=== PATIENT | male | born 1960 | race Caucasian/White ===

== ENCOUNTER 2016-09-28 17:19 | Inpatient (IN) | payer MEDICAID ==
[~2016-09-28] VITALS: Ht 182.9 cm; Wt 120.4 kg
[2016-09-28] MEDS ORDERED: ASPI500T10 PO (17:52)
[2016-09-28] MEDS ORDERED: SODIUM CHLORIDE FLUSH 10ML SYR IVF ONE (18:30)
[2016-09-28 19:17] LABS: HEMOGLOBIN 8.7 g/dL (13.7-18.0)
[2016-09-28 19:39] LABS: ASPARTATE AMINO TRANSFERASE 41 U/L (15-37); BLOOD UREA NITROGEN 30 mg/dL (7-18)
[2016-09-28 19:41] LABS: IS PT STATUS REG ER OR PRE ER? YES
[2016-09-28] MEDS ORDERED: SODIUM CHLORIDE FLUSH 10ML SYR IVF PRN (20:30)
[2016-09-28] MEDS ORDERED: FUROSEMIDE 40 MG/4 ML IV ONE (21:30)
[2016-09-28] MEDS ORDERED: POLYETHYLENE GLYCOL 17 GM PACKET PO PRN (21:30)
[2016-09-28] MEDS ORDERED: BISACODYL 10 MG SUPP PR PRN (21:30)
[2016-09-28] MEDS ORDERED: ONDANSETRON 2MG/ML, 2ML IVP PRN (21:30)
[2016-09-28] MEDS: POTASSIUM CHLORIDE 20 MEQ TAB.ER.PRT PO SCH (22:41)
[2016-09-28] MEDS: HEPARIN 5,000 UNITS/ML, 1ML SQ SCH (22:41)
[2016-09-28] MEDS: SODIUM CHLORIDE FLUSH 10ML SYR IVF SCH (22:41)
[2016-09-28 22:51] VITALS: BP 177/95
[2016-09-29 01:21] LABS: IS PT STATUS REG ER OR PRE ER? NO
[2016-09-29 02:24] VITALS: BP 171/94
[2016-09-29] MEDS: HEPARIN 5,000 UNITS/ML, 1ML SQ SCH ×3 (05:46→21:01)
[2016-09-29] MEDS ORDERED: CARVEDILOL 3.125 MG TABLET PO SCH (06:00)
[2016-09-29 07:08] LABS: HEMOGLOBIN 7.6 g/dL (13.7-18.0)
[2016-09-29 07:11] LABS: ASPARTATE AMINO TRANSFERASE 27 U/L (15-37); BLOOD UREA NITROGEN 27 mg/dL (7-18)
[2016-09-29 07:23] LABS: IS PT STATUS REG ER OR PRE ER? NO
[2016-09-29 07:57] VITALS: BP 152/80
[2016-09-29] MEDS: FUROSEMIDE 40 MG/4 ML IV SCH ×2 (08:18→16:49)
[2016-09-29] MEDS: POTASSIUM CHLORIDE 20 MEQ TAB.ER.PRT PO SCH ×2 (08:19→16:49)
[2016-09-29] MEDS: SODIUM CHLORIDE FLUSH 10ML SYR IVF SCH ×2 (08:20→21:01)
[2016-09-29] MEDS: SENNA/DOCUSATE TABLET PO SCH (08:20)
[2016-09-29 13:47] VITALS: BP 147/78
[2016-09-29] MEDS: METOPROLOL TARTRATE 25 MG TABLET PO SCH (16:49)
[2016-09-29 17:05] LABS: OCCBLD OBC PASS
[2016-09-29 19:09] VITALS: BP 142/81
[2016-09-30] VITALS (9 sets, daily range): BP systolic 138–193; BP diastolic 75–120
[2016-09-30] MEDS ORDERED: FLU VACC QS2016-17 (36MOS+)UP/PF 0.5 ML IM-VACC ONE (05:00)
[2016-09-30] MEDS: METOPROLOL TARTRATE 25 MG TABLET PO SCH ×2 (05:41→17:55)
[2016-09-30] MEDS: HEPARIN 5,000 UNITS/ML, 1ML SQ SCH ×3 (05:41→20:23)
[2016-09-30 06:49] LABS: HEMOGLOBIN 8.3 g/dL (13.7-18.0)
[2016-09-30 06:59] LABS: BLOOD UREA NITROGEN 29 mg/dL (7-18)
[2016-09-30] MEDS: FUROSEMIDE 40 MG/4 ML IV SCH (07:30)
[2016-09-30] MEDS: SENNA/DOCUSATE TABLET PO SCH (09:45)
[2016-09-30] MEDS: POTASSIUM CHLORIDE 20 MEQ TAB.ER.PRT PO SCH ×2 (09:45→17:55)
[2016-09-30] MEDS: ALBUMIN HUMAN 25% 100 ML IV SCH ×2 (09:45→17:56)
[2016-09-30] MEDS: SODIUM CHLORIDE FLUSH 10ML SYR IVF SCH ×2 (09:45→20:23)
[2016-09-30] MEDS: FUROSEMIDE 20 MG/2 ML IV SCH ×2 (09:46→17:57)
[2016-09-30] MEDS: IRON SUCROSE COMPLEX 100MG/5ML IV SCH (11:51)
[2016-09-30] MEDS: ENALAPRILAT 1.25 MG/ML, 2ML IV PRN (19:04)
[2016-09-30] MEDS ORDERED: FUROSEMIDE 20 MG/2 ML IV ONE (20:00)
[2016-10-01] VITALS (13 sets, daily range): BP systolic 159–202; BP diastolic 72–108
[2016-10-01] MEDS ORDERED: LORazepam 1MG TABLET PO PRN (00:30)
[2016-10-01] MEDS ORDERED: hydrALAzine 20 MG/ML, 1ML IV PRN (00:30)
[2016-10-01 00:47] LABS: ABG COLLECTION SITE LEFT RADIAL; COLLATERAL CIRCULATION TESTING NORMAL
[2016-10-01] MEDS: ENALAPRILAT 1.25 MG/ML, 2ML IV PRN ×2 (00:56→10:26)
[2016-10-01 00:57] LABS: IS PT STATUS REG ER OR PRE ER? NO
[2016-10-01] MEDS: ALBUMIN HUMAN 25% 100 ML IV SCH ×4 (03:57→20:10)
[2016-10-01] MEDS: HEPARIN 5,000 UNITS/ML, 1ML SQ SCH ×3 (05:48→22:42)
[2016-10-01] MEDS: METOPROLOL TARTRATE 25 MG TABLET PO SCH ×2 (05:49→17:13)
[2016-10-01 07:16] LABS: BLOOD UREA NITROGEN 30 mg/dL (7-18)
[2016-10-01 07:20] LABS: IS PT STATUS REG ER OR PRE ER? NO
[2016-10-01] MEDS: FUROSEMIDE 20 MG/2 ML IV SCH ×3 (07:30→17:13)
[2016-10-01] MEDS: IRON SUCROSE COMPLEX 100MG/5ML IV SCH (10:01)
[2016-10-01] MEDS: POTASSIUM CHLORIDE 20 MEQ TAB.ER.PRT PO SCH ×2 (10:01→17:13)
[2016-10-01] MEDS: SENNA/DOCUSATE TABLET PO SCH (10:02)
[2016-10-01] MEDS: SODIUM CHLORIDE FLUSH 10ML SYR IVF SCH ×2 (10:02→20:10)
[2016-10-01] MEDS ORDERED: LORazepam 0.5MG TABLET PO PRN (11:30)
[2016-10-01] MEDS: AMLODIPINE 5 MG TABLET PO SCH (13:07)
[2016-10-01] MEDS ORDERED: LORazepam 0.5MG TABLET PO ONE (19:30)
[2016-10-01 19:54] LABS: ABG COLLECTION SITE RIGHT BRACHIAL
[2016-10-02 01:20] VITALS: BP 180/95
[2016-10-02 02:00] VITALS: BP 162/75
[2016-10-02] MEDS: ALBUMIN HUMAN 25% 100 ML IV SCH (02:30)
[2016-10-02] MEDS: ENALAPRILAT 1.25 MG/ML, 2ML IV PRN (02:30)
[2016-10-02] MEDS: METOPROLOL TARTRATE 25 MG TABLET PO SCH ×2 (05:12→16:14)
[2016-10-02 05:33] LABS: HEMOGLOBIN 8.8 g/dL (13.7-18.0)
[2016-10-02 05:43] LABS: BLOOD UREA NITROGEN 32 mg/dL (7-18)
[2016-10-02 05:47] LABS: ASPARTATE AMINO TRANSFERASE 14 U/L (15-37)
[2016-10-02 06:39] VITALS: BP 161/89
[2016-10-02] MEDS: FUROSEMIDE 20 MG/2 ML IV SCH ×2 (07:30→16:13)
[2016-10-02] MEDS: AMLODIPINE 5 MG TABLET PO SCH (08:20)
[2016-10-02] MEDS: SENNA/DOCUSATE TABLET PO SCH (08:20)
[2016-10-02] MEDS: HEPARIN 5,000 UNITS/ML, 1ML SQ SCH ×2 (08:20→16:14)
[2016-10-02] MEDS: SODIUM CHLORIDE FLUSH 10ML SYR IVF SCH ×2 (08:20→20:52)
[2016-10-02] MEDS: IRON SUCROSE COMPLEX 100MG/5ML IV SCH (08:20)
[2016-10-02] MEDS ORDERED: FUROSEMIDE 100 MG/10 ML IV ONE (09:30)
[2016-10-02] MEDS: POTASSIUM CHLORIDE 20 MEQ TAB.ER.PRT PO SCH ×2 (10:48→16:13)
[2016-10-02] MEDS: AcetaZOLAMIDE INJ 500 MG IVPush SCH ×2 (10:48→20:54)
[2016-10-02 12:07] LABS: ABG COLLECTION SITE RIGHT RADIAL; COLLATERAL CIRCULATION TESTING NORMAL
[2016-10-02 13:14] VITALS: BP 167/78
[2016-10-02 19:54] VITALS: BP 155/76
[2016-10-03] MEDS: HEPARIN 5,000 UNITS/ML, 1ML SQ SCH ×3 (00:49→18:40)
[2016-10-03 03:27] VITALS: BP 158/90
[2016-10-03 06:55] VITALS: BP 165/77
[2016-10-03 06:56] LABS: HEMOGLOBIN 8.5 g/dL (13.7-18.0)
[2016-10-03 07:07] LABS: BLOOD UREA NITROGEN 36 mg/dL (7-18)
[2016-10-03] MEDS: FUROSEMIDE 20 MG/2 ML IV SCH (08:45)
[2016-10-03] MEDS: SENNA/DOCUSATE TABLET PO SCH (09:00)
[2016-10-03 09:02] LABS: PTH INTACT INTERPRETATION ** Comment **
[2016-10-03] MEDS: IRON SUCROSE COMPLEX 100MG/5ML IV SCH (09:14)
[2016-10-03] MEDS: AcetaZOLAMIDE INJ 500 MG IVPush SCH ×2 (09:23→21:36)
[2016-10-03] MEDS: SODIUM CHLORIDE FLUSH 10ML SYR IVF SCH ×2 (09:25→21:36)
[2016-10-03] MEDS: AMLODIPINE 5 MG TABLET PO SCH (09:36)
[2016-10-03] MEDS: METOPROLOL TARTRATE 25 MG TABLET PO SCH ×2 (09:37→21:35)
[2016-10-03] MEDS: POTASSIUM CHLORIDE 20 MEQ TAB.ER.PRT PO SCH ×2 (09:37→18:39)
[2016-10-03 10:03] LABS: PARATHYROID HORMONE INTACT 63.8 pg/mL (14-72)
[2016-10-03 10:23] LABS: ANTISTREPTOLYSIN-O TITER 200 IU/mL
[2016-10-03 13:15] VITALS: BP 165/81
[2016-10-03] MEDS: ERGOCALCIFEROL 50,000 UNIT CAPSULE PO SCH (15:23)
[2016-10-03] MEDS: ALBUMIN HUMAN 25% 100 ML IV SCH (16:30)
[2016-10-03] MEDS ORDERED: FUROSEMIDE 40 MG/4 ML IV SCH (17:00)
[2016-10-03] MEDS: FUROSEMIDE 40 MG/4 ML IV SCH (18:40)
[2016-10-03 21:05] VITALS: BP 162/81
[2016-10-04 03:36] VITALS: BP 160/82
[2016-10-04 05:09] LABS: HEMOGLOBIN 8.3 g/dL (13.7-18.0)
[2016-10-04 05:17] LABS: BLOOD UREA NITROGEN 38 mg/dL (7-18)
[2016-10-04] MEDS: ALBUMIN HUMAN 25% 100 ML IV SCH ×2 (06:00→17:19)
[2016-10-04 06:25] VITALS: BP 149/82
[2016-10-04] MEDS: HEPARIN 5,000 UNITS/ML, 1ML SQ SCH ×3 (06:26→21:59)
[2016-10-04] MEDS: METOPROLOL TARTRATE 25 MG TABLET PO SCH ×2 (06:26→18:00)
[2016-10-04] MEDS: SENNA/DOCUSATE TABLET PO SCH (09:00)
[2016-10-04 09:40] VITALS: BP 123/79
[2016-10-04] MEDS: IRON SUCROSE COMPLEX 100MG/5ML IV SCH (09:44)
[2016-10-04] MEDS: POTASSIUM CHLORIDE 20 MEQ TAB.ER.PRT PO SCH ×2 (09:44→17:15)
[2016-10-04] MEDS: FUROSEMIDE 40 MG/4 ML IV SCH ×2 (09:44→17:17)
[2016-10-04] MEDS: SODIUM CHLORIDE FLUSH 10ML SYR IVF SCH ×2 (09:45→21:59)
[2016-10-04] MEDS: AMLODIPINE 5 MG TABLET PO SCH (09:45)
[2016-10-04] MEDS: AcetaZOLAMIDE INJ 500 MG IVPush SCH (09:45)
[2016-10-04] MEDS: ERGOCALCIFEROL 50,000 UNIT CAPSULE PO SCH (09:46)
[2016-10-04 14:16] VITALS: BP 139/83
[2016-10-04 17:14] VITALS: BP 141/74
[2016-10-04 18:45] VITALS: BP 136/75
[2016-10-05 02:10] VITALS: BP 147/78
[2016-10-05 05:24] LABS: HEMOGLOBIN 7.9 g/dL (13.7-18.0)
[2016-10-05] MEDS: HEPARIN 5,000 UNITS/ML, 1ML SQ SCH ×3 (05:44→21:23)
[2016-10-05] MEDS: METOPROLOL TARTRATE 25 MG TABLET PO SCH ×2 (05:50→17:18)
[2016-10-05] MEDS: ALBUMIN HUMAN 25% 100 ML IV SCH ×2 (05:51→16:28)
[2016-10-05 06:08] LABS: ASPARTATE AMINO TRANSFERASE 12 U/L (15-37); BLOOD UREA NITROGEN 41 mg/dL (7-18)
[2016-10-05 07:24] VITALS: BP 129/76
[2016-10-05] MEDS: POTASSIUM CHLORIDE 20 MEQ TAB.ER.PRT PO SCH (08:00)
[2016-10-05] MEDS: SENNA/DOCUSATE TABLET PO SCH (09:00)
[2016-10-05] MEDS: IRON SUCROSE COMPLEX 100MG/5ML IV SCH (12:17)
[2016-10-05] MEDS: FUROSEMIDE 40 MG/4 ML IV SCH ×2 (12:17→16:59)
[2016-10-05] MEDS: LISINOPRIL 10 MG TABLET PO SCH ×2 (12:18→21:23)
[2016-10-05] MEDS: SODIUM CHLORIDE FLUSH 10ML SYR IVF SCH ×2 (12:18→21:23)
[2016-10-05] MEDS: AMLODIPINE 5 MG TABLET PO SCH (12:18)
[2016-10-05 12:58] VITALS: BP 121/73
[2016-10-05] MEDS: ACETAMINOPHEN 325 MG TABLET PO PRN (13:47)
[2016-10-05 19:20] VITALS: BP 130/73
[2016-10-06 01:41] VITALS: BP 156/80
[2016-10-06] MEDS: HEPARIN 5,000 UNITS/ML, 1ML SQ SCH ×3 (05:21→22:08)
[2016-10-06] MEDS: ALBUMIN HUMAN 25% 100 ML IV SCH ×2 (05:21→18:00)
[2016-10-06] MEDS: METOPROLOL TARTRATE 25 MG TABLET PO SCH ×2 (05:21→18:25)
[2016-10-06 05:22] LABS: HEMOGLOBIN 7.9 g/dL (13.7-18.0)
[2016-10-06 05:49] LABS: ASPARTATE AMINO TRANSFERASE 14 U/L (15-37); BLOOD UREA NITROGEN 45 mg/dL (7-18)
[2016-10-06 07:29] VITALS: BP 120/66
[2016-10-06] MEDS: ACETAMINOPHEN 325 MG TABLET PO PRN ×3 (07:42→18:26)
[2016-10-06] MEDS: SENNA/DOCUSATE TABLET PO SCH (09:00)
[2016-10-06] MEDS: LISINOPRIL 10 MG TABLET PO SCH ×2 (09:09→22:08)
[2016-10-06] MEDS: AMLODIPINE 5 MG TABLET PO SCH (09:10)
[2016-10-06 10:07] LABS: FREE KAPPA LT CHAINS SERUM 151.66 mg/L (3.30-19.40); FREE LAMBDA LT CHAINS SERUM 67.58 mg/L (5.71-26.30); KAPPA/LAMBDA RATIO SERUM 2.24 (0.26-1.65)
[2016-10-06 10:20] LABS: HEPATITIS C VIRUS ANTIBODY Reactive (Nonreactive)
[2016-10-06] MEDS: FUROSEMIDE 40 MG/4 ML IV SCH ×2 (11:41→17:59)
[2016-10-06] MEDS: SODIUM CHLORIDE FLUSH 10ML SYR IVF SCH ×2 (11:41→22:08)
[2016-10-06] MEDS: IRON SUCROSE COMPLEX 100MG/5ML IV SCH (11:41)
[2016-10-06 12:06] LABS: A/G RATIO 0.7 (0.7-1.7); ALBUMIN 2.1 g/dL (2.9-4.4); ALPHA-1-GLOBULIN 0.3 g/dL (0.0-0.4); BETA GLOBULIN 0.8 g/dL (0.7-1.3); GAMMA GLOBULIN 1.1 g/dL (0.4-1.8); IMMUNOGLOBULIN A 140 mg/dL (90-386); IMMUNOGLOBULIN G 1200 mg/dL (700-1600); IMMUNOGLOBULIN M 168 mg/dL (20-172); PROTEIN TOTAL 5.2 g/dL (6.0-8.5)
[2016-10-06 13:06] LABS: A/G RATIO 0.6 (0.7-1.7); ALBUMIN 2.1 g/dL (2.9-4.4); ALPHA-1-GLOBULIN 0.3 g/dL (0.0-0.4); BETA GLOBULIN 0.9 g/dL (0.7-1.3); GAMMA GLOBULIN 1.2 g/dL (0.4-1.8); PROTEIN TOTAL 5.4 g/dL (6.0-8.5)
[2016-10-06 13:50] VITALS: BP 118/67
[2016-10-06 14:07] LABS: PROTEINASE 3 (PR-3) AB <3.5 U/mL (0.0-3.5)
[2016-10-06 18:53] LABS: ANA SCREEN POSITIVE (Negative)
[2016-10-06 19:06] LABS: COMPLEMENT C3 160 mg/dL (82-167); COMPLEMENT C4 29 mg/dL (14-44); COMPLEMENT TOTAL (CH50) >60 U/mL (42-60)
[2016-10-06 19:40] VITALS: BP 131/72
[2016-10-07 01:47] VITALS: BP 144/76
[2016-10-07 05:14] LABS: BLOOD UREA NITROGEN 46 mg/dL (7-18)
[2016-10-07] MEDS: ALBUMIN HUMAN 25% 100 ML IV SCH ×2 (06:00→17:22)
[2016-10-07] MEDS: HEPARIN 5,000 UNITS/ML, 1ML SQ SCH ×3 (06:11→22:00)
[2016-10-07] MEDS: METOPROLOL TARTRATE 25 MG TABLET PO SCH ×2 (06:11→17:16)
[2016-10-07 07:06] VITALS: BP 142/74
[2016-10-07] MEDS: FUROSEMIDE 40 MG/4 ML IV SCH ×4 (07:30→21:00)
[2016-10-07] MEDS: SENNA/DOCUSATE TABLET PO SCH (09:00)
[2016-10-07] MEDS: SODIUM CHLORIDE FLUSH 10ML SYR IVF SCH ×2 (09:27→21:00)
[2016-10-07] MEDS: IRON SUCROSE COMPLEX 100MG/5ML IV SCH (09:27)
[2016-10-07] MEDS: AMLODIPINE 5 MG TABLET PO SCH (09:28)
[2016-10-07] MEDS: LISINOPRIL 10 MG TABLET PO SCH ×2 (09:28→21:00)
[2016-10-07 12:06] LABS: C-REACTIVE PROTEIN, QUANT 2.1 mg/dL (0.02-0.49)
[2016-10-07 14:37] VITALS: BP 136/68
[2016-10-07 19:20] VITALS: BP 143/73
[2016-10-08 02:10] VITALS: BP 154/76
[2016-10-08 05:05] LABS: HEMOGLOBIN 8.1 g/dL (13.7-18.0)
[2016-10-08 05:21] LABS: BLOOD UREA NITROGEN 48 mg/dL (7-18)
[2016-10-08] MEDS: ALBUMIN HUMAN 25% 100 ML IV SCH ×2 (06:00→17:40)
[2016-10-08] MEDS: METOPROLOL TARTRATE 25 MG TABLET PO SCH ×2 (06:00→17:40)
[2016-10-08] MEDS: SENNA/DOCUSATE TABLET PO SCH (09:00)
[2016-10-08 09:59] VITALS: BP 129/72
[2016-10-08] MEDS: FUROSEMIDE 40 MG/4 ML IV SCH ×3 (10:30→21:00)
[2016-10-08] MEDS: HEPARIN 5,000 UNITS/ML, 1ML SQ SCH ×2 (10:30→22:00)
[2016-10-08] MEDS: AMLODIPINE 5 MG TABLET PO SCH (10:30)
[2016-10-08] MEDS: LISINOPRIL 10 MG TABLET PO SCH ×2 (10:30→22:01)
[2016-10-08] MEDS: SODIUM CHLORIDE FLUSH 10ML SYR IVF SCH ×2 (10:30→22:01)
[2016-10-08] MEDS: IRON SUCROSE COMPLEX 100MG/5ML IV SCH (10:30)
[2016-10-08] MEDS ORDERED: LIDOCAINE 2%, 20ML ONE (12:59)
[2016-10-08] MEDS ORDERED: FENTANYL PF 100 MCG/2ML ONE (13:06)
[2016-10-08] MEDS ORDERED: FLUMAZENIL 0.1 MG/1 ML, 5ML ONE (13:06)
[2016-10-08] MEDS ORDERED: MIDAZOLAM 1 MG/ML, 5ML ONE (13:06)
[2016-10-08] MEDS ORDERED: NALOXONE 1 MG/ML, 2ML ONE (13:06)
[2016-10-08 15:09] VITALS: BP 135/78
[2016-10-08 21:30] VITALS: BP 138/68
[2016-10-09 03:55] VITALS: BP 143/75
[2016-10-09] MEDS: ALBUMIN HUMAN 25% 100 ML IV SCH ×2 (06:00→18:00)
[2016-10-09 06:10] LABS: HEMOGLOBIN 8.4 g/dL (13.7-18.0)
[2016-10-09] MEDS: HEPARIN 5,000 UNITS/ML, 1ML SQ SCH ×3 (06:18→20:18)
[2016-10-09 06:20] LABS: BLOOD UREA NITROGEN 49 mg/dL (7-18)
[2016-10-09] MEDS: METOPROLOL TARTRATE 25 MG TABLET PO SCH ×2 (06:22→19:17)
[2016-10-09] MEDS: ACETAMINOPHEN 325 MG TABLET PO PRN (06:22)
[2016-10-09 07:22] VITALS: BP 138/75
[2016-10-09] MEDS: SODIUM CHLORIDE FLUSH 10ML SYR IVF SCH ×2 (09:00→20:18)
[2016-10-09] MEDS: FUROSEMIDE 40 MG/4 ML IV SCH ×3 (10:07→20:18)
[2016-10-09] MEDS: LISINOPRIL 10 MG TABLET PO SCH ×2 (10:07→20:21)
[2016-10-09] MEDS: AMLODIPINE 5 MG TABLET PO SCH (10:07)
[2016-10-09] MEDS: SENNA/DOCUSATE TABLET PO SCH (10:07)
[2016-10-09] MEDS: IRON SUCROSE COMPLEX 100MG/5ML IV SCH (12:24)
[2016-10-09 13:07] LABS: HCV LOG10 4.661 (.); HEPATITIS C PCR QUANTITATION 45800 IU/mL (.)
[2016-10-09 13:29] VITALS: BP 122/64
[2016-10-09 20:40] VITALS: BP 133/67
[2016-10-10] MEDS: ACETAMINOPHEN 325 MG TABLET PO PRN ×2 (00:38→15:53)
[2016-10-10 02:35] VITALS: BP 134/73
[2016-10-10] MEDS: ALBUMIN HUMAN 25% 100 ML IV SCH ×2 (05:00→16:12)
[2016-10-10 05:41] LABS: HEMOGLOBIN 8.8 g/dL (13.7-18.0)
[2016-10-10] MEDS: METOPROLOL TARTRATE 25 MG TABLET PO SCH ×2 (05:49→18:08)
[2016-10-10] MEDS: HEPARIN 5,000 UNITS/ML, 1ML SQ SCH ×3 (05:49→19:59)
[2016-10-10 06:03] LABS: ASPARTATE AMINO TRANSFERASE 13 U/L (15-37); BLOOD UREA NITROGEN 57 mg/dL (7-18)
[2016-10-10 07:26] VITALS: BP 133/71
[2016-10-10] MEDS: SENNA/DOCUSATE TABLET PO SCH (09:00)
[2016-10-10] MEDS: ERGOCALCIFEROL 50,000 UNIT CAPSULE PO SCH (09:08)
[2016-10-10] MEDS: AMLODIPINE 5 MG TABLET PO SCH (09:09)
[2016-10-10] MEDS: LISINOPRIL 10 MG TABLET PO SCH ×2 (09:09→19:59)
[2016-10-10] MEDS: FUROSEMIDE 40 MG/4 ML IV SCH ×3 (09:09→19:59)
[2016-10-10] MEDS: SODIUM CHLORIDE FLUSH 10ML SYR IVF SCH ×2 (09:10→19:59)
[2016-10-10 13:09] VITALS: BP 133/69
[2016-10-10 21:05] LABS: HEPATITIS C GENOTYPE 2b (.)
[2016-10-10 21:15] VITALS: BP 119/69
[2016-10-11 04:00] VITALS: BP 136/70
[2016-10-11] MEDS: ALBUMIN HUMAN 25% 100 ML IV SCH ×2 (05:00→17:00)
[2016-10-11 05:53] LABS: HEMOGLOBIN 8.6 g/dL (13.7-18.0)
[2016-10-11 06:05] LABS: BLOOD UREA NITROGEN 60 mg/dL (7-18)
[2016-10-11] MEDS: HEPARIN 5,000 UNITS/ML, 1ML SQ SCH ×3 (06:33→21:44)
[2016-10-11] MEDS: METOPROLOL TARTRATE 25 MG TABLET PO SCH ×2 (06:33→17:20)
[2016-10-11 08:19] VITALS: BP 133/71
[2016-10-11] MEDS: SENNA/DOCUSATE TABLET PO SCH (09:00)
[2016-10-11] MEDS: AMLODIPINE 5 MG TABLET PO SCH (09:14)
[2016-10-11] MEDS: LISINOPRIL 10 MG TABLET PO SCH ×2 (09:14→21:44)
[2016-10-11] MEDS: SODIUM CHLORIDE FLUSH 10ML SYR IVF SCH ×2 (09:15→21:44)
[2016-10-11] MEDS: FUROSEMIDE 40 MG/4 ML IV SCH ×3 (09:15→21:43)
[2016-10-11 12:53] VITALS: BP 93/62
[2016-10-11 14:08] VITALS: BP 123/66
[2016-10-11 17:19] VITALS: BP 126/68
[2016-10-11 20:20] VITALS: BP 133/72
[2016-10-11] MEDS: ACETAMINOPHEN 325 MG TABLET PO PRN (23:56)
[2016-10-12 02:58] VITALS: BP 133/73
[2016-10-12] MEDS: ALBUMIN HUMAN 25% 100 ML IV SCH (05:26)
[2016-10-12 06:02] VITALS: BP 133/71
[2016-10-12] MEDS: METOPROLOL TARTRATE 25 MG TABLET PO SCH ×2 (06:05→17:45)
[2016-10-12] MEDS: HEPARIN 5,000 UNITS/ML, 1ML SQ SCH ×3 (06:05→21:34)
[2016-10-12 06:15] LABS: HEMOGLOBIN 8.7 g/dL (13.7-18.0)
[2016-10-12 06:26] LABS: BLOOD UREA NITROGEN 68 mg/dL (7-18)
[2016-10-12 07:17] VITALS: BP 132/74
[2016-10-12] MEDS: AMLODIPINE 5 MG TABLET PO SCH (08:25)
[2016-10-12] MEDS: LISINOPRIL 10 MG TABLET PO SCH ×2 (08:25→21:34)
[2016-10-12] MEDS: FUROSEMIDE 40 MG/4 ML IV SCH (08:26)
[2016-10-12] MEDS: SODIUM CHLORIDE FLUSH 10ML SYR IVF SCH ×2 (08:26→21:34)
[2016-10-12] MEDS: SENNA/DOCUSATE TABLET PO SCH (08:28)
[2016-10-12 12:35] VITALS: BP 134/70
[2016-10-12 17:44] VITALS: BP 128/74
[2016-10-12 19:30] VITALS: BP 126/73
[2016-10-13 03:50] VITALS: BP 139/76
[2016-10-13 05:37] VITALS: BP 137/74
[2016-10-13] MEDS: HEPARIN 5,000 UNITS/ML, 1ML SQ SCH ×3 (05:39→20:59)
[2016-10-13] MEDS: METOPROLOL TARTRATE 25 MG TABLET PO SCH ×2 (05:40→17:29)
[2016-10-13 06:45] VITALS: BP 127/67
[2016-10-13] MEDS: SENNA/DOCUSATE TABLET PO SCH (09:00)
[2016-10-13] MEDS ORDERED: FUROSEMIDE 40 MG/4 ML IV SCH (09:00)
[2016-10-13] MEDS: AMLODIPINE 5 MG TABLET PO SCH (09:19)
[2016-10-13] MEDS: LISINOPRIL 10 MG TABLET PO SCH ×2 (09:19→19:50)
[2016-10-13] MEDS: SODIUM CHLORIDE FLUSH 10ML SYR IVF SCH ×2 (09:20→19:51)
[2016-10-13 12:35] VITALS: BP 119/70
[2016-10-13 17:29] VITALS: BP 127/73
[2016-10-13 19:22] VITALS: BP 131/68
[2016-10-13] MEDS: ACETAMINOPHEN 325 MG TABLET PO PRN (19:51)
[2016-10-14 03:46] VITALS: BP 137/79
[2016-10-14 05:39] VITALS: BP 144/74
[2016-10-14] MEDS: METOPROLOL TARTRATE 25 MG TABLET PO SCH ×2 (05:43→17:18)
[2016-10-14] MEDS: HEPARIN 5,000 UNITS/ML, 1ML SQ SCH ×3 (05:43→21:51)
[2016-10-14 08:00] VITALS: BP 125/65
[2016-10-14] MEDS: LISINOPRIL 10 MG TABLET PO SCH ×2 (08:52→21:52)
[2016-10-14] MEDS: FUROSEMIDE 40 MG TABLET PO SCH (08:52)
[2016-10-14] MEDS: AMLODIPINE 5 MG TABLET PO SCH (08:52)
[2016-10-14] MEDS: SENNA/DOCUSATE TABLET PO SCH (08:53)
[2016-10-14] MEDS: SODIUM CHLORIDE FLUSH 10ML SYR IVF SCH ×2 (08:53→21:51)
[2016-10-14 15:12] VITALS: BP 145/71
[2016-10-14 20:23] VITALS: BP 122/65
[2016-10-15 02:59] VITALS: BP 127/73
[2016-10-15] MEDS: METOPROLOL TARTRATE 25 MG TABLET PO SCH ×2 (04:45→17:45)
[2016-10-15] MEDS: HEPARIN 5,000 UNITS/ML, 1ML SQ SCH ×3 (06:32→22:52)
[2016-10-15 07:22] VITALS: BP 141/70
[2016-10-15] MEDS: LISINOPRIL 10 MG TABLET PO SCH ×2 (08:40→22:52)
[2016-10-15] MEDS: AMLODIPINE 5 MG TABLET PO SCH (08:40)
[2016-10-15] MEDS: FUROSEMIDE 40 MG TABLET PO SCH (08:41)
[2016-10-15] MEDS: SENNA/DOCUSATE TABLET PO SCH (08:41)
[2016-10-15] MEDS: SODIUM CHLORIDE FLUSH 10ML SYR IVF SCH ×2 (08:41→22:53)
[2016-10-15 12:21] LABS: BLOOD UREA NITROGEN 70 mg/dL (7-18)
[2016-10-15 12:25] LABS: ASPARTATE AMINO TRANSFERASE 15 U/L (15-37)
[2016-10-15 14:26] VITALS: BP 134/73
[2016-10-15 20:00] VITALS: BP 136/71
[2016-10-16 02:00] VITALS: BP 152/75
[2016-10-16] MEDS: HEPARIN 5,000 UNITS/ML, 1ML SQ SCH ×3 (05:16→20:51)
[2016-10-16 05:19] VITALS: BP 147/78
[2016-10-16] MEDS: METOPROLOL TARTRATE 25 MG TABLET PO SCH ×2 (05:19→17:42)
[2016-10-16 06:05] LABS: BLOOD UREA NITROGEN 75 mg/dL (7-18)
[2016-10-16 07:23] VITALS: BP 124/74
[2016-10-16] MEDS: SODIUM CHLORIDE FLUSH 10ML SYR IVF SCH ×2 (09:00→20:52)
[2016-10-16] MEDS: SENNA/DOCUSATE TABLET PO SCH (10:27)
[2016-10-16] MEDS: AMLODIPINE 5 MG TABLET PO SCH (10:27)
[2016-10-16] MEDS: LISINOPRIL 10 MG TABLET PO SCH ×2 (10:28→20:51)
[2016-10-16] MEDS: FUROSEMIDE 40 MG TABLET PO SCH (10:28)
[2016-10-16 13:40] VITALS: BP 144/77
[2016-10-16 21:42] VITALS: BP 115/63
[2016-10-17 01:55] VITALS: BP 135/73
[2016-10-17 06:08] LABS: BLOOD UREA NITROGEN 77 mg/dL (7-18)
[2016-10-17] MEDS: METOPROLOL TARTRATE 25 MG TABLET PO SCH ×2 (06:30→17:49)
[2016-10-17] MEDS: HEPARIN 5,000 UNITS/ML, 1ML SQ SCH ×3 (06:31→21:51)
[2016-10-17 07:46] VITALS: BP 134/72
[2016-10-17] MEDS: ERGOCALCIFEROL 50,000 UNIT CAPSULE PO SCH (08:35)
[2016-10-17] MEDS: AMLODIPINE 5 MG TABLET PO SCH (08:36)
[2016-10-17] MEDS: SODIUM CHLORIDE FLUSH 10ML SYR IVF SCH ×2 (08:36→21:51)
[2016-10-17] MEDS: SENNA/DOCUSATE TABLET PO SCH (08:36)
[2016-10-17] MEDS: LISINOPRIL 10 MG TABLET PO SCH ×2 (08:36→21:50)
[2016-10-17] MEDS: FUROSEMIDE 40 MG TABLET PO SCH (11:06)
[2016-10-17 12:50] VITALS: BP 100/61
[2016-10-17 20:02] VITALS: BP 126/69
[2016-10-18 03:12] VITALS: BP 145/73
[2016-10-18] MEDS: METOPROLOL TARTRATE 25 MG TABLET PO SCH ×2 (05:56→17:08)
[2016-10-18] MEDS: HEPARIN 5,000 UNITS/ML, 1ML SQ SCH ×3 (05:56→20:15)
[2016-10-18 06:49] LABS: BLOOD UREA NITROGEN 85 mg/dL (7-18)
[2016-10-18 07:01] VITALS: BP 130/70
[2016-10-18] MEDS: SODIUM CHLORIDE FLUSH 10ML SYR IVF SCH ×2 (11:04→20:15)
[2016-10-18] MEDS: FUROSEMIDE 40 MG TABLET PO SCH (11:04)
[2016-10-18] MEDS: AMLODIPINE 5 MG TABLET PO SCH (11:05)
[2016-10-18] MEDS: LISINOPRIL 10 MG TABLET PO SCH ×2 (11:05→20:14)
[2016-10-18] MEDS: SENNA/DOCUSATE TABLET PO SCH (11:05)
[2016-10-18 13:51] VITALS: BP 125/70
[2016-10-18 18:24] VITALS: BP 122/63
[2016-10-19 02:10] VITALS: BP 116/76
[2016-10-19 05:29] VITALS: BP 139/78
[2016-10-19] MEDS: METOPROLOL TARTRATE 25 MG TABLET PO SCH ×2 (05:30→18:00)
[2016-10-19] MEDS: HEPARIN 5,000 UNITS/ML, 1ML SQ SCH ×3 (05:32→18:00)
[2016-10-19 06:18] LABS: HEMOGLOBIN 9.5 g/dL (13.7-18.0)
[2016-10-19 06:35] LABS: BLOOD UREA NITROGEN 89 mg/dL (7-18)
[2016-10-19 07:10] VITALS: BP 144/78
[2016-10-19] MEDS: SODIUM CHLORIDE FLUSH 10ML SYR IVF SCH ×2 (09:00→21:01)
[2016-10-19] MEDS: SENNA/DOCUSATE TABLET PO SCH (10:05)
[2016-10-19] MEDS: FUROSEMIDE 40 MG TABLET PO SCH (10:05)
[2016-10-19] MEDS: AMLODIPINE 5 MG TABLET PO SCH (10:06)
[2016-10-19] MEDS: LISINOPRIL 10 MG TABLET PO SCH ×2 (10:06→21:01)
[2016-10-19 14:42] VITALS: BP 128/73
[2016-10-19 19:17] VITALS: BP 132/67
[2016-10-20] MEDS: HEPARIN 5,000 UNITS/ML, 1ML SQ SCH ×3 (01:27→17:21)
[2016-10-20 02:41] VITALS: BP 143/75
[2016-10-20 05:31] VITALS: BP 145/79
[2016-10-20] MEDS: METOPROLOL TARTRATE 25 MG TABLET PO SCH ×2 (05:34→17:21)
[2016-10-20 07:35] VITALS: BP 147/75
[2016-10-20] MEDS: SENNA/DOCUSATE TABLET PO SCH (08:35)
[2016-10-20] MEDS: AMLODIPINE 5 MG TABLET PO SCH (08:35)
[2016-10-20] MEDS: FUROSEMIDE 40 MG TABLET PO SCH (08:35)
[2016-10-20] MEDS: SODIUM CHLORIDE FLUSH 10ML SYR IVF SCH ×2 (08:35→20:28)
[2016-10-20] MEDS: LISINOPRIL 10 MG TABLET PO SCH ×2 (08:35→20:28)
[2016-10-20 14:17] VITALS: BP 114/65
[2016-10-20 19:57] VITALS: BP 137/71
[2016-10-21 00:10] VITALS: BP 134/78
[2016-10-21] MEDS: HEPARIN 5,000 UNITS/ML, 1ML SQ SCH ×3 (01:52→17:37)
[2016-10-21] MEDS: METOPROLOL TARTRATE 25 MG TABLET PO SCH ×2 (05:21→17:37)
[2016-10-21 07:11] VITALS: BP 136/76
[2016-10-21] MEDS: FUROSEMIDE 40 MG TABLET PO SCH (09:10)
[2016-10-21] MEDS: LISINOPRIL 10 MG TABLET PO SCH ×2 (09:10→21:49)
[2016-10-21] MEDS: AMLODIPINE 5 MG TABLET PO SCH (09:10)
[2016-10-21] MEDS: SENNA/DOCUSATE TABLET PO SCH (09:10)
[2016-10-21] MEDS: SODIUM CHLORIDE FLUSH 10ML SYR IVF SCH ×2 (09:10→21:49)
[2016-10-21 13:38] VITALS: BP 118/69
[2016-10-21 18:54] VITALS: BP 133/72
[2016-10-22 02:50] VITALS: BP 136/78
[2016-10-22] MEDS: HEPARIN 5,000 UNITS/ML, 1ML SQ SCH ×3 (03:27→22:02)
[2016-10-22] MEDS: METOPROLOL TARTRATE 25 MG TABLET PO SCH ×2 (05:55→17:34)
[2016-10-22 06:36] LABS: BLOOD UREA NITROGEN 92 mg/dL (7-18)
[2016-10-22 07:05] VITALS: BP 144/80
[2016-10-22] MEDS: SENNA/DOCUSATE TABLET PO SCH (07:54)
[2016-10-22] MEDS: LISINOPRIL 10 MG TABLET PO SCH ×2 (07:54→22:02)
[2016-10-22] MEDS: AMLODIPINE 5 MG TABLET PO SCH (07:54)
[2016-10-22] MEDS: FUROSEMIDE 40 MG TABLET PO SCH (07:55)
[2016-10-22] MEDS: SODIUM CHLORIDE FLUSH 10ML SYR IVF SCH ×2 (07:55→22:02)
[2016-10-22 13:37] VITALS: BP 118/69
[2016-10-22 19:08] VITALS: BP 120/65
[2016-10-23 02:34] VITALS: BP 120/65
[2016-10-23] MEDS: HEPARIN 5,000 UNITS/ML, 1ML SQ SCH ×3 (06:39→22:08)
[2016-10-23] MEDS: METOPROLOL TARTRATE 25 MG TABLET PO SCH ×2 (06:40→17:40)
[2016-10-23 09:25] VITALS: BP 128/71
[2016-10-23] MEDS: FUROSEMIDE 40 MG TABLET PO SCH (09:51)
[2016-10-23] MEDS: AMLODIPINE 5 MG TABLET PO SCH (09:51)
[2016-10-23] MEDS: SENNA/DOCUSATE TABLET PO SCH (09:51)
[2016-10-23] MEDS: SODIUM CHLORIDE FLUSH 10ML SYR IVF SCH ×2 (09:52→22:14)
[2016-10-23] MEDS: LISINOPRIL 10 MG TABLET PO SCH ×2 (09:52→22:07)
[2016-10-23 13:21] VITALS: BP 126/70
[2016-10-23 19:52] VITALS: BP 134/75
[2016-10-24 01:45] VITALS: BP 146/73
[2016-10-24] MEDS: METOPROLOL TARTRATE 25 MG TABLET PO SCH ×2 (05:05→18:00)
[2016-10-24] MEDS: HEPARIN 5,000 UNITS/ML, 1ML SQ SCH ×3 (05:07→21:36)
[2016-10-24 05:08] VITALS: BP 148/78
[2016-10-24 08:07] VITALS: BP 145/86
[2016-10-24] MEDS: SODIUM CHLORIDE FLUSH 10ML SYR IVF SCH ×2 (09:00→21:30)
[2016-10-24] MEDS: ERGOCALCIFEROL 50,000 UNIT CAPSULE PO SCH (09:59)
[2016-10-24] MEDS: AMLODIPINE 5 MG TABLET PO SCH (09:59)
[2016-10-24] MEDS: FUROSEMIDE 40 MG TABLET PO SCH (09:59)
[2016-10-24] MEDS: SENNA/DOCUSATE TABLET PO SCH (09:59)
[2016-10-24] MEDS: LISINOPRIL 10 MG TABLET PO SCH ×2 (09:59→21:30)
[2016-10-24 14:00] VITALS: BP 135/72
[2016-10-24 19:20] VITALS: BP 132/72
[2016-10-24] MEDS ORDERED: RISPERIDONE 2 MG TABLET PO SCH (21:00)
[2016-10-25 01:45] VITALS: BP 131/70
[2016-10-25] MEDS: HEPARIN 5,000 UNITS/ML, 1ML SQ SCH ×3 (05:47→21:36)
[2016-10-25] MEDS: METOPROLOL TARTRATE 25 MG TABLET PO SCH ×2 (05:47→17:54)
[2016-10-25 06:00] LABS: ASPARTATE AMINO TRANSFERASE 11 U/L (15-37); BLOOD UREA NITROGEN 93 mg/dL (7-18)
[2016-10-25 06:02] LABS: HEMOGLOBIN 10.6 g/dL (13.7-18.0)
[2016-10-25 07:39] VITALS: BP 148/73
[2016-10-25] MEDS: SENNA/DOCUSATE TABLET PO SCH (07:49)
[2016-10-25] MEDS: AMLODIPINE 5 MG TABLET PO SCH (07:49)
[2016-10-25] MEDS: LISINOPRIL 10 MG TABLET PO SCH ×2 (07:49→21:36)
[2016-10-25] MEDS: FUROSEMIDE 40 MG TABLET PO SCH (07:49)
[2016-10-25] MEDS: SODIUM CHLORIDE FLUSH 10ML SYR IVF SCH ×2 (07:50→21:37)
[2016-10-25 15:18] VITALS: BP 131/70
[2016-10-25 19:10] VITALS: BP 125/67
[2016-10-26 01:13] VITALS: BP 130/79
[2016-10-26] MEDS: METOPROLOL TARTRATE 25 MG TABLET PO SCH ×2 (05:45→17:13)
[2016-10-26] MEDS: HEPARIN 5,000 UNITS/ML, 1ML SQ SCH ×3 (05:45→21:33)
[2016-10-26 06:46] LABS: BLOOD UREA NITROGEN 91 mg/dL (7-18)
[2016-10-26 06:55] VITALS: BP 129/62
[2016-10-26] MEDS: SENNA/DOCUSATE TABLET PO SCH (08:01)
[2016-10-26] MEDS: LISINOPRIL 10 MG TABLET PO SCH ×2 (08:01→21:32)
[2016-10-26] MEDS: AMLODIPINE 5 MG TABLET PO SCH (08:01)
[2016-10-26] MEDS: FUROSEMIDE 40 MG TABLET PO SCH (08:01)
[2016-10-26] MEDS: SODIUM CHLORIDE FLUSH 10ML SYR IVF SCH ×2 (08:02→21:32)
[2016-10-26 12:50] VITALS: BP 113/72
[2016-10-26 18:31] VITALS: BP 123/70
[2016-10-27 03:20] VITALS: BP 151/73
[2016-10-27] MEDS: METOPROLOL TARTRATE 25 MG TABLET PO SCH ×2 (05:30→18:00)
[2016-10-27] MEDS: HEPARIN 5,000 UNITS/ML, 1ML SQ SCH ×3 (05:31→20:34)
[2016-10-27 06:12] LABS: ASPARTATE AMINO TRANSFERASE 11 U/L (15-37); BLOOD UREA NITROGEN 91 mg/dL (7-18)
[2016-10-27 07:18] VITALS: BP 128/75
[2016-10-27] MEDS: SENNA/DOCUSATE TABLET PO SCH (08:59)
[2016-10-27] MEDS: FUROSEMIDE 40 MG TABLET PO SCH (08:59)
[2016-10-27] MEDS: SODIUM CHLORIDE FLUSH 10ML SYR IVF SCH ×2 (09:00→20:34)
[2016-10-27] MEDS: AMLODIPINE 5 MG TABLET PO SCH (09:00)
[2016-10-27] MEDS: LISINOPRIL 10 MG TABLET PO SCH ×2 (09:00→20:34)
[2016-10-27 13:55] VITALS: BP 120/73
[2016-10-27 20:25] VITALS: BP 133/74
[2016-10-27] MEDS ORDERED: AMLODIPINE 5 MG TABLET PO SCH (21:00)
[2016-10-28 01:57] VITALS: BP 135/79
[2016-10-28] MEDS: METOPROLOL TARTRATE 25 MG TABLET PO SCH (06:00)
[2016-10-28 06:08] LABS: HEMOGLOBIN 10.9 g/dL (13.7-18.0)
[2016-10-28 06:10] VITALS: BP 142/77
[2016-10-28] MEDS: HEPARIN 5,000 UNITS/ML, 1ML SQ SCH ×2 (06:12→14:00)
[2016-10-28 06:24] LABS: BLOOD UREA NITROGEN 88 mg/dL (7-18)
[2016-10-28 07:52] VITALS: BP 149/74
[2016-10-28] MEDS: LISINOPRIL 10 MG TABLET PO SCH (08:10)
[2016-10-28] MEDS: SENNA/DOCUSATE TABLET PO SCH (08:11)
[2016-10-28] MEDS: SODIUM CHLORIDE FLUSH 10ML SYR IVF SCH (08:11)
[2016-10-28] MEDS ORDERED: FUROSEMIDE 40 MG/4 ML IV SCH (09:00)
[2016-10-28 11:30] LABS: BLOOD UREA NITROGEN 85 mg/dL (7-18)
[2016-10-28] MEDS ORDERED: LORA-445 PO (13:20)
[2016-10-28] MEDS ORDERED: METO25TA35 PO (13:20)
[2016-10-28] MEDS ORDERED: LISI-167 PO (13:20)
[2016-10-28] MEDS ORDERED: FURO40TA6 PO (13:20)
[2016-10-28] MEDS ORDERED: ERGO500017 PO (13:20)
[2016-10-28] MEDS ORDERED: ACET325T14 PO (13:20)
[2016-10-28] MEDS ORDERED: AMLO5TAB2 PO (13:20)
[2016-10-28 13:37] VITALS: BP 119/72
== END 2016-10-28 16:55 | disposition home or self-care (01) | DRG 291 ==
LOC: ED 20:01 → EDIP 20:02 → SUATTDRO 20:08 → ED 20:22 → 5SO 21:51 → 4WST 10-08 19:29
PROC: 0T9B70Z Drainage of Bladder with Drainage Device, Via Natural or Artificial Opening (ICD-10-PCS; principal; 2016-09-29)
PROC: 07DR3ZX Extraction of Iliac Bone Marrow, Percutaneous Approach, Diagnostic (ICD-10-PCS; 2016-10-08)
PROC: 0TB13ZX Excision of Left Kidney, Percutaneous Approach, Diagnostic (ICD-10-PCS; 2016-10-08)
DX: I13.0 Hypertensive heart and chronic kidney disease with heart failure and stage 1 through stage 4 chronic kidney disease, or unspecified chronic kidney disease (principal); J96.01 Acute respiratory failure with hypoxia; E43 Unspecified severe protein-calorie malnutrition; N17.0 Acute kidney failure with tubular necrosis; I24.8 Other forms of acute ischemic heart disease; N18.4 Chronic kidney disease, stage 4 (severe); I50.9 Heart failure, unspecified; E66.01 Morbid (severe) obesity due to excess calories; D50.9 Iron deficiency anemia, unspecified; B19.20 Unspecified viral hepatitis C without hepatic coma; N25.0 Renal osteodystrophy; E55.9 Vitamin D deficiency, unspecified; F22 Delusional disorders; I27.2 Other secondary pulmonary hypertension; R73.9 Hyperglycemia, unspecified; N26.9 Renal sclerosis, unspecified; Z87.891 Personal history of nicotine dependence; Z79.899 Other long term (current) drug therapy; Z82.0 Family history of epilepsy and other diseases of the nervous system; Z98.890 Other specified postprocedural states; Z68.36 Body mass index [BMI] 36.0-36.9, adult; Z80.1 Family history of malignant neoplasm of trachea, bronchus and lung; Z23 Encounter for immunization
CPT/HCPCS: 36415; 36600; 50200; 70260; 71010; 71250; 76770; 76870; 77012; 77075; 78582; 80048; 80053; 80061; 80069; 80074; 81001; 82040; 82232; 82272; 82306; 82310; 82330; 82550; 82570; 82728; 82784; 82803; 83036; 83520; 83540; 83550; 83615; 83735; 83880; 83883; 83970; 84100; 84155; 84156; 84165; 84439; 84443; 84484; 84540; 84550; 85025; 85097; 85379; 85610; 85651; 85730; 86038; 86039; 86060; 86063; 86140; 86160; 86162; 86225; 86256; 86334; 87205; 87324; 87521; 87522; 87902; 88237; 88264; 88280; 88300; 88305; 88311; 88313; 88329; 88341; 88342; 90686; 93005; 93306; 93970; 94762; 99156; 99157; G0364; J1644; J1756; J1940; J2250; J3010; J3490; P9047; A9540; A9558; C9898; G0461; J0360; J1120; J2310

== ENCOUNTER → 2016-11-04 | Outpatient (CLI) | payer MEDICAID ==
[~2016-11-04] MED LIST: ACET325T14 PO; AMLO5TAB2 PO; ASPI500T10 PO; ERGO500017 PO; FURO40TA6 PO; LISI-167 PO; LORA-445 PO; METO25TA35 PO
== END | disposition home or self-care (01) ==
LOC: WOUND 13:05
PROVIDERS: ATTEND Internal Medicine
DX: L89.893 Pressure ulcer of other site, stage 3 (principal); E44.0 Moderate protein-calorie malnutrition; B18.2 Chronic viral hepatitis C; I10 Essential (primary) hypertension; E66.9 Obesity, unspecified; Z87.891 Personal history of nicotine dependence
CPT/HCPCS: 11042; 99215

== ENCOUNTER → 2016-11-18 | Outpatient (CLI) | payer MEDICAID | END | disposition home or self-care (01) | LOC: CFH 11:29 | PROVIDERS: ATTEND Internal Medicine | DX: S92.351A Displaced fracture of fifth metatarsal bone, right foot, initial encounter for closed fracture (principal); M86.8X7 Other osteomyelitis, ankle and foot; X58.XXXA Exposure to other specified factors, initial encounter; Y93.89 Activity, other specified; Y92.89 Other specified places as the place of occurrence of the external cause; Y99.8 Other external cause status ==

== ENCOUNTER → 2016-11-18 | Outpatient (CLI) | payer MEDICAID | END | disposition home or self-care (01) | LOC: WOUND 10:45 | PROVIDERS: ATTEND Internal Medicine | DX: L89.893 Pressure ulcer of other site, stage 3 (principal); E44.0 Moderate protein-calorie malnutrition; B18.2 Chronic viral hepatitis C | CPT/HCPCS: 29581; 87077; 87186; 97597 ==

== ENCOUNTER → 2016-11-24 | Outpatient (CLI) | payer MEDICAID | END | disposition home or self-care (01) | LOC: WOUND 10:17 | PROVIDERS: ATTEND Nurse Practitioner Family | DX: L89.893 Pressure ulcer of other site, stage 3 (principal); L89.610 Pressure ulcer of right heel, unstageable; L89.620 Pressure ulcer of left heel, unstageable; B18.2 Chronic viral hepatitis C; E44.0 Moderate protein-calorie malnutrition; Z68.41 Body mass index [BMI] 40.0-44.9, adult; E11.69 Type 2 diabetes mellitus with other specified complication; M86.8X7 Other osteomyelitis, ankle and foot; E43 Unspecified severe protein-calorie malnutrition; E11.22 Type 2 diabetes mellitus with diabetic chronic kidney disease; I13.0 Hypertensive heart and chronic kidney disease with heart failure and stage 1 through stage 4 chronic kidney disease, or unspecified chronic kidney disease; N18.4 Chronic kidney disease, stage 4 (severe); I50.9 Heart failure, unspecified; E66.9 Obesity, unspecified | CPT/HCPCS: 29581; 97602 ==

== ENCOUNTER 2016-11-27 11:56 | Inpatient (IN) | payer MEDICAID ==
[~2016-11-27] VITALS: Ht 182.9 cm; Wt 145.6 kg
[2016-11-27] MEDS ORDERED: SODIUM CHLORIDE 0.9% 1,000 ML IV ONE (13:06)
[2016-11-27] MEDS ORDERED: SODIUM CHLORIDE 0.9% 1,000ML IVBOLUS ONE (13:30)
[2016-11-27] MEDS ORDERED: AMPICILLIN/SULBACTAM 3 GM in SODIUM CHLORIDE 0.9% 100 ML IVPB ONE (13:30)
[2016-11-27 13:53] LABS: BLOOD UREA NITROGEN 38 mg/dL (7-18)
[2016-11-27] MEDS ORDERED: SODIUM CHLORIDE 0.9% 1,000 ML IV SCH (14:53)
[2016-11-27] MEDS ORDERED: ACETAMINOPHEN 325 MG TABLET PO PRN ×2 (15:00→17:30)
[2016-11-27] MEDS ORDERED: ENALAPRILAT 1.25 MG/ML, 2ML IV PRN (15:00)
[2016-11-27] MEDS ORDERED: hydrALAzine 20 MG/ML, 1ML IV PRN ×2 (15:00→17:30)
[2016-11-27] MEDS ORDERED: DOCUSATE 100 MG CAPSULE PO PRN (15:00)
[2016-11-27] MEDS ORDERED: LABETALOL 5MG/ML, 20ML IVPush PRN (15:00)
[2016-11-27] MEDS ORDERED: POLYETHYLENE GLYCOL 17 GM PACKET PO PRN (15:00)
[2016-11-27] MEDS ORDERED: ONDANSETRON 2MG/ML, 2ML IVP PRN (15:00)
[2016-11-27] MEDS ORDERED: LORazepam 0.5MG TABLET PO PRN (15:00)
[2016-11-27] MEDS ORDERED: MORPHINE SULFATE 4 MG/ML, 1ML IVPush PRN (15:00)
[2016-11-27 15:39] VITALS: BP 160/107
[2016-11-27] MEDS: INSULIN REGULAR 100 UNITS/ML, 3ML VIAL SQ-INSULIN SCH ×2 (16:00→21:00)
[2016-11-27 16:10] VITALS: BP 167/82
[2016-11-27] MEDS: PIPERACILLIN/TAZO/PMX 3.375GM 50 ML IV SCH ×2 (16:42→23:11)
[2016-11-27] MEDS ORDERED: FENTANYL PF 250 MCG/5ML ONE (17:26)
[2016-11-27] MEDS ORDERED: FENTANYL PF 100 MCG/2ML IV PRN (17:30)
[2016-11-27] MEDS ORDERED: METOPROLOL 1 MG/ML, 5ML IV PRN (17:30)
[2016-11-27] MEDS ORDERED: ALBUTEROL SULFATE 2.5 MG/3 ML NPPB PRN (17:30)
[2016-11-27] MEDS ORDERED: OXYcodone 5 MG/5 ML ORAL.SOL UDC PO PRN (17:30)
[2016-11-27] MEDS ORDERED: LABETALOL 5MG/ML, 20ML IV PRN (17:30)
[2016-11-27] MEDS ORDERED: HYDROmorphone 1 MG/ML, 1ML IV PRN (17:30)
[2016-11-27] MEDS ORDERED: EPHEDRINE 50 MG/ML, 1ML IVPush PRN (17:30)
[2016-11-27] MEDS ORDERED: ONDANSETRON 2MG/ML, 2ML IVPush PRN (17:30)
[2016-11-27] MEDS ORDERED: METOPROLOL 1 MG/ML, 5ML ONE (17:34)
[2016-11-27] MEDS ORDERED: CEFAZOLIN 1,000 MG ONE (17:34)
[2016-11-27] MEDS ORDERED: BUPIVACAINE/PF-EPI 0.5% 1:200K ONE (17:41)
[2016-11-27] MEDS ORDERED: BUPIVACAINE/PF 0.5% ONE (17:42)
[2016-11-27] MEDS ORDERED: OXYcodone 5 MG/5 ML ORAL.SOL UDC ONE (18:15)
[2016-11-27] MEDS ORDERED: ALBUTEROL SULFATE 2.5 MG/3 ML ONE (18:48)
[2016-11-27] MEDS: METOPROLOL TARTRATE 25 MG TABLET PO SCH ×2 (20:00→21:51)
[2016-11-27] MEDS: AMLODIPINE 5 MG TABLET PO SCH (21:51)
[2016-11-28] VITALS (9 sets, daily range): BP systolic 141–164; BP diastolic 74–83
[2016-11-28] MEDS: HYDROcodone/APAP 5/325 TABLET PO PRN ×3 (00:45→19:03)
[2016-11-28] MEDS ORDERED: FUROSEMIDE 100 MG/10 ML IV ONE (03:30)
[2016-11-28 05:00] LABS: BLOOD UREA NITROGEN 37 mg/dL (7-18)
[2016-11-28] MEDS: PIPERACILLIN/TAZO/PMX 3.375GM 50 ML IV SCH ×3 (05:22→18:21)
[2016-11-28] MEDS: METOPROLOL TARTRATE 25 MG TABLET PO SCH ×2 (06:26→18:22)
[2016-11-28] MEDS: INSULIN REGULAR 100 UNITS/ML, 3ML VIAL SQ-INSULIN SCH ×4 (07:26→21:03)
[2016-11-28] MEDS: SENNA/DOCUSATE TABLET PO SCH (09:43)
[2016-11-28] MEDS ORDERED: FUROSEMIDE 40 MG/4 ML IV ONE (10:30)
[2016-11-28 12:33] LABS: ABG COLLECTION SITE LEFT RADIAL; COLLATERAL CIRCULATION TESTING NORMAL
[2016-11-28] MEDS: FUROSEMIDE 40 MG/4 ML IV SCH (18:21)
[2016-11-28] MEDS: CEFTAROLINE 400 MG in SODIUM CHLORIDE 0.9% 100 ML IV SCH (19:45)
[2016-11-28] MEDS: AMLODIPINE 5 MG TABLET PO SCH (21:03)
[2016-11-29] MEDS: PIPERACILLIN/TAZO/PMX 3.375GM 50 ML IV SCH ×4 (00:17→17:18)
[2016-11-29] MEDS: FUROSEMIDE 40 MG/4 ML IV SCH ×3 (00:23→17:18)
[2016-11-29] MEDS: HYDROcodone/APAP 5/325 TABLET PO PRN ×2 (00:24→08:04)
[2016-11-29 05:00] VITALS: BP 144/68
[2016-11-29 05:49] LABS: BLOOD UREA NITROGEN 38 mg/dL (7-18)
[2016-11-29] MEDS: METOPROLOL TARTRATE 25 MG TABLET PO SCH ×2 (06:24→17:18)
[2016-11-29] MEDS: INSULIN REGULAR 100 UNITS/ML, 3ML VIAL SQ-INSULIN SCH ×4 (07:00→21:30)
[2016-11-29] MEDS: CEFTAROLINE 400 MG in SODIUM CHLORIDE 0.9% 100 ML IV SCH ×2 (07:59→21:29)
[2016-11-29] MEDS: SENNA/DOCUSATE TABLET PO SCH (07:59)
[2016-11-29] MEDS: GUAIFENESIN ER 600 MG TABLET PO SCH ×2 (09:25→21:29)
[2016-11-29] MEDS ORDERED: SODIUM CHLORIDE INHALATION 7%, 4 ML NPPB ONE (09:30)
[2016-11-29] MEDS: ALBUTEROL SULFATE 2.5 MG/3 ML NPPB SCH ×2 (14:47→20:27)
[2016-11-29] MEDS: AMLODIPINE 5 MG TABLET PO SCH (21:30)
[2016-11-30] MEDS: PIPERACILLIN/TAZO/PMX 3.375GM 50 ML IV SCH ×4 (00:01→17:57)
[2016-11-30] MEDS: FUROSEMIDE 40 MG/4 ML IV SCH ×3 (00:07→17:01)
[2016-11-30 02:23] VITALS: BP 152/76
[2016-11-30] MEDS: METOPROLOL TARTRATE 25 MG TABLET PO SCH ×2 (05:31→17:57)
[2016-11-30 06:03] LABS: BLOOD UREA NITROGEN 43 mg/dL (7-18)
[2016-11-30] MEDS: INSULIN REGULAR 100 UNITS/ML, 3ML VIAL SQ-INSULIN SCH ×4 (07:00→20:14)
[2016-11-30 07:20] VITALS: BP 154/77
[2016-11-30] MEDS: ALBUTEROL SULFATE 2.5 MG/3 ML NPPB SCH ×4 (07:20→19:45)
[2016-11-30] MEDS: CEFTAROLINE 400 MG in SODIUM CHLORIDE 0.9% 100 ML IV SCH ×2 (08:48→20:14)
[2016-11-30] MEDS: SENNA/DOCUSATE TABLET PO SCH (08:48)
[2016-11-30] MEDS: GUAIFENESIN ER 600 MG TABLET PO SCH ×2 (08:48→20:14)
[2016-11-30] MEDS: HYDROcodone/APAP 5/325 TABLET PO PRN (11:09)
[2016-11-30 12:38] VITALS: BP 142/76
[2016-11-30] MEDS: AMLODIPINE 5 MG TABLET PO SCH (20:14)
[2016-12-01] MEDS: PIPERACILLIN/TAZO/PMX 3.375GM 50 ML IV SCH ×4 (00:17→18:00)
[2016-12-01] MEDS: FUROSEMIDE 40 MG/4 ML IV SCH ×3 (00:25→20:03)
[2016-12-01 00:34] VITALS: BP 160/76
[2016-12-01 05:32] LABS: BLOOD UREA NITROGEN 43 mg/dL (7-18)
[2016-12-01] MEDS: METOPROLOL TARTRATE 25 MG TABLET PO SCH ×2 (05:45→18:00)
[2016-12-01 07:22] VITALS: BP 158/79
[2016-12-01] MEDS: INSULIN REGULAR 100 UNITS/ML, 3ML VIAL SQ-INSULIN SCH ×4 (07:45→20:55)
[2016-12-01] MEDS: ALBUTEROL SULFATE 2.5 MG/3 ML NPPB SCH ×4 (07:45→18:50)
[2016-12-01] MEDS: CEFTAROLINE 400 MG in SODIUM CHLORIDE 0.9% 100 ML IV SCH ×2 (08:34→22:09)
[2016-12-01] MEDS: SENNA/DOCUSATE TABLET PO SCH (09:00)
[2016-12-01] MEDS ORDERED: FUROSEMIDE 40 MG/4 ML IV SCH (09:00)
[2016-12-01] MEDS: HYDROcodone/APAP 5/325 TABLET PO PRN (09:06)
[2016-12-01] MEDS: GUAIFENESIN ER 600 MG TABLET PO SCH ×2 (09:06→20:53)
[2016-12-01 13:10] VITALS: BP 144/72
[2016-12-01 19:29] VITALS: BP 137/75
[2016-12-01] MEDS: AMLODIPINE 5 MG TABLET PO SCH (20:55)
[2016-12-02] MEDS: PIPERACILLIN/TAZO/PMX 3.375GM 50 ML IV SCH ×4 (00:20→17:31)
[2016-12-02] MEDS: HYDROcodone/APAP 5/325 TABLET PO PRN ×2 (01:32→22:22)
[2016-12-02 01:35] VITALS: BP 151/73
[2016-12-02 05:41] LABS: BLOOD UREA NITROGEN 44 mg/dL (7-18)
[2016-12-02] MEDS: METOPROLOL TARTRATE 25 MG TABLET PO SCH ×2 (06:06→17:31)
[2016-12-02 07:08] VITALS: BP 135/77
[2016-12-02] MEDS: ALBUTEROL SULFATE 2.5 MG/3 ML NPPB SCH ×3 (07:50→19:18)
[2016-12-02] MEDS: INSULIN REGULAR 100 UNITS/ML, 3ML VIAL SQ-INSULIN SCH ×4 (07:50→21:56)
[2016-12-02] MEDS: CEFTAROLINE 400 MG in SODIUM CHLORIDE 0.9% 100 ML IV SCH ×2 (08:00→20:39)
[2016-12-02] MEDS: GUAIFENESIN ER 600 MG TABLET PO SCH ×2 (08:01→20:39)
[2016-12-02] MEDS: SENNA/DOCUSATE TABLET PO SCH (08:01)
[2016-12-02] MEDS: FUROSEMIDE 40 MG/4 ML IV SCH (08:01)
[2016-12-02 14:35] VITALS: BP 139/74
[2016-12-02 19:27] VITALS: BP 149/79
[2016-12-02] MEDS ORDERED: GLUCAGON 1 MG IM PRN (20:00)
[2016-12-02] MEDS ORDERED: DEXTROSE 4 GM TAB.CHEW PO PRN (20:00)
[2016-12-02] MEDS ORDERED: DEXTROSE 50%, 50ML SYRINGE IVPush PRN (20:00)
[2016-12-02] MEDS: AMLODIPINE 5 MG TABLET PO SCH (20:40)
[2016-12-02] MEDS: SODIUM CHLORIDE FLUSH 10ML SYR IVF SCH (20:40)
[2016-12-03 00:49] VITALS: BP 152/76
[2016-12-03 05:49] LABS: BLOOD UREA NITROGEN 48 mg/dL (7-18)
[2016-12-03] MEDS: PIPERACILLIN/TAZO/PMX 3.375GM 50 ML IV SCH ×2 (06:06)
[2016-12-03] MEDS: METOPROLOL TARTRATE 25 MG TABLET PO SCH ×2 (06:11→17:25)
[2016-12-03] MEDS: INSULIN REGULAR 100 UNITS/ML, 3ML VIAL SQ-INSULIN SCH ×4 (07:00→21:52)
[2016-12-03] MEDS ORDERED: SODIUM CHLORIDE 0.9% 1,000 ML IV SCH (08:00)
[2016-12-03] MEDS: GUAIFENESIN ER 600 MG TABLET PO SCH ×2 (08:19→21:51)
[2016-12-03 08:21] VITALS: BP 152/77
[2016-12-03] MEDS: ALBUTEROL SULFATE 2.5 MG/3 ML NPPB SCH (08:22)
[2016-12-03] MEDS: SODIUM CHLORIDE FLUSH 10ML SYR IVF SCH ×2 (08:23→21:51)
[2016-12-03] MEDS ORDERED: ALBUTEROL SULFATE 2.5 MG/3 ML NPPB PRN (08:30)
[2016-12-03] MEDS ORDERED: FUROSEMIDE 40 MG/4 ML IV SCH (09:00)
[2016-12-03] MEDS: SENNA/DOCUSATE TABLET PO SCH (09:00)
[2016-12-03 15:47] VITALS: BP 145/79
[2016-12-03 20:34] VITALS: BP 148/76
[2016-12-03] MEDS: AMLODIPINE 5 MG TABLET PO SCH (21:51)
[2016-12-03] MEDS: HYDROcodone/APAP 5/325 TABLET PO PRN (22:09)
[2016-12-04 00:45] VITALS: BP 135/79
[2016-12-04 05:32] LABS: BLOOD UREA NITROGEN 48 mg/dL (7-18)
[2016-12-04] MEDS: METOPROLOL TARTRATE 25 MG TABLET PO SCH ×2 (06:28→17:35)
[2016-12-04] MEDS: INSULIN REGULAR 100 UNITS/ML, 3ML VIAL SQ-INSULIN SCH ×4 (07:00→22:36)
[2016-12-04 07:25] VITALS: BP 154/82
[2016-12-04] MEDS: SODIUM CHLORIDE FLUSH 10ML SYR IVF SCH ×2 (08:36→22:36)
[2016-12-04] MEDS: GUAIFENESIN ER 600 MG TABLET PO SCH ×2 (08:36→22:36)
[2016-12-04] MEDS: SENNA/DOCUSATE TABLET PO SCH (08:36)
[2016-12-04 12:38] VITALS: BP 150/80
[2016-12-04 19:13] VITALS: BP 168/84
[2016-12-04] MEDS: AMLODIPINE 5 MG TABLET PO SCH (22:36)
[2016-12-05 01:45] VITALS: BP 168/81
[2016-12-05 06:05] LABS: BLOOD UREA NITROGEN 50 mg/dL (7-18)
[2016-12-05] MEDS: METOPROLOL TARTRATE 25 MG TABLET PO SCH ×2 (06:19→16:43)
[2016-12-05] MEDS: INSULIN REGULAR 100 UNITS/ML, 3ML VIAL SQ-INSULIN SCH ×4 (07:00→20:55)
[2016-12-05 07:17] VITALS: BP 162/83
[2016-12-05] MEDS: SODIUM CHLORIDE FLUSH 10ML SYR IVF SCH ×2 (08:53→20:04)
[2016-12-05] MEDS: GUAIFENESIN ER 600 MG TABLET PO SCH ×2 (08:58→20:04)
[2016-12-05] MEDS: SENNA/DOCUSATE TABLET PO SCH (08:58)
[2016-12-05 14:09] VITALS: BP 159/80
[2016-12-05] MEDS: AMLODIPINE 5 MG TABLET PO SCH (20:04)
[2016-12-05 20:05] VITALS: BP 157/76
[2016-12-06 02:00] VITALS: BP 182/76
[2016-12-06 05:31] VITALS: BP 168/79
[2016-12-06] MEDS: METOPROLOL TARTRATE 25 MG TABLET PO SCH ×2 (05:33→17:14)
[2016-12-06 06:59] VITALS: BP 163/78
[2016-12-06] MEDS: INSULIN REGULAR 100 UNITS/ML, 3ML VIAL SQ-INSULIN SCH ×4 (07:00→20:54)
[2016-12-06] MEDS: SENNA/DOCUSATE TABLET PO SCH (09:00)
[2016-12-06] MEDS: GUAIFENESIN ER 600 MG TABLET PO SCH (09:00)
[2016-12-06 10:29] LABS: BLOOD UREA NITROGEN 49 mg/dL (7-18)
[2016-12-06] MEDS: SODIUM CHLORIDE FLUSH 10ML SYR IVF SCH ×2 (10:38→20:40)
[2016-12-06] MEDS ORDERED: SENNA/DOCUSATE TABLET PO PRN (11:00)
[2016-12-06] MEDS: FUROSEMIDE 20 MG/2 ML IV SCH (12:57)
[2016-12-06 13:09] VITALS: BP 165/81
[2016-12-06 20:00] VITALS: BP 159/81
[2016-12-06] MEDS: AMLODIPINE 5 MG TABLET PO SCH (20:39)
[2016-12-07 02:20] VITALS: BP 168/81
[2016-12-07 05:31] LABS: BLOOD UREA NITROGEN 56 mg/dL (7-18)
[2016-12-07 06:14] VITALS: BP 166/89
[2016-12-07] MEDS: METOPROLOL TARTRATE 25 MG TABLET PO SCH ×2 (06:14→18:00)
[2016-12-07] MEDS: INSULIN REGULAR 100 UNITS/ML, 3ML VIAL SQ-INSULIN SCH ×4 (07:00→21:25)
[2016-12-07 07:34] VITALS: BP 143/82
[2016-12-07] MEDS: SODIUM CHLORIDE FLUSH 10ML SYR IVF SCH ×2 (08:36→21:13)
[2016-12-07] MEDS: FUROSEMIDE 20 MG/2 ML IV SCH (08:36)
[2016-12-07 12:33] VITALS: BP 161/81
[2016-12-07 18:49] VITALS: BP 164/84
[2016-12-07] MEDS: AMLODIPINE 5 MG TABLET PO SCH (21:13)
[2016-12-08 01:20] VITALS: BP 174/84
[2016-12-08 02:00] VITALS: BP 168/82
[2016-12-08] MEDS: METOPROLOL TARTRATE 25 MG TABLET PO SCH (05:23)
[2016-12-08 05:25] VITALS: BP 150/79
[2016-12-08 05:43] LABS: BLOOD UREA NITROGEN 63 mg/dL (7-18)
[2016-12-08 06:47] VITALS: BP 145/74
[2016-12-08] MEDS: INSULIN REGULAR 100 UNITS/ML, 3ML VIAL SQ-INSULIN SCH ×2 (07:00→11:00)
[2016-12-08] MEDS: FUROSEMIDE 20 MG/2 ML IV SCH (09:00)
[2016-12-08] MEDS: SODIUM CHLORIDE FLUSH 10ML SYR IVF SCH (09:00)
[2016-12-08 12:15] VITALS: BP 149/78
== END 2016-12-08 16:09 | disposition home or self-care (01) | DRG 853 ==
LOC: ED 12:51 → EDIP 13:41 → 3NE 14:58 → CCU 11-28 16:46 → 4EST 11-29 18:20 → DCLOUNGE 12-08 15:55
PROVIDERS: ADMIT Family Medicine; ATTEND Family Medicine
PROC: 0Y6M0Z8 Detachment at Right Foot, Complete 5th Ray, Open Approach (ICD-10-PCS; principal; 2016-11-27 20:00)
PROC: 30233N1 Transfusion of Nonautologous Red Blood Cells into Peripheral Vein, Percutaneous Approach (ICD-10-PCS; 2016-11-28)
DX: A41.9 Sepsis, unspecified organism (principal); E43 Unspecified severe protein-calorie malnutrition; I50.33 Acute on chronic diastolic (congestive) heart failure; J96.01 Acute respiratory failure with hypoxia; M86.171 Other acute osteomyelitis, right ankle and foot; D62 Acute posthemorrhagic anemia; Z68.41 Body mass index [BMI] 40.0-44.9, adult; I13.0 Hypertensive heart and chronic kidney disease with heart failure and stage 1 through stage 4 chronic kidney disease, or unspecified chronic kidney disease; L02.611 Cutaneous abscess of right foot; N17.9 Acute kidney failure, unspecified; D63.1 Anemia in chronic kidney disease; E11.22 Type 2 diabetes mellitus with diabetic chronic kidney disease; E11.69 Type 2 diabetes mellitus with other specified complication; E66.01 Morbid (severe) obesity due to excess calories; I27.2 Other secondary pulmonary hypertension; N18.9 Chronic kidney disease, unspecified; S91.301A Unspecified open wound, right foot, initial encounter; Z89.422 Acquired absence of other left toe(s); Z87.441 Personal history of nephrotic syndrome
CPT/HCPCS: 36415; 36600; 71010; 80048; 82040; 82570; 82803; 82962; 83605; 83735; 83880; 84540; 85025; 86850; 86900; 86923; 87040; 87070; 87075; 87077; 87081; 87147; 87186; 87205; 87324; 93005; 93970; 94640; J0295; J0690; J0712; J1815; J1940; J2405; J2543; J3010; J3490; J7613; J7030; P9016

== ENCOUNTER → 2016-11-27 | Outpatient (CLI) | payer MEDICAID | END | disposition home or self-care (01) | LOC: WOUND 10:40 | PROVIDERS: ATTEND Physician Assistant | DX: L89.620 Pressure ulcer of left heel, unstageable (principal); L89.610 Pressure ulcer of right heel, unstageable; L89.893 Pressure ulcer of other site, stage 3; B18.2 Chronic viral hepatitis C; E44.0 Moderate protein-calorie malnutrition; I11.0 Hypertensive heart disease with heart failure; I50.9 Heart failure, unspecified; E66.9 Obesity, unspecified; Z87.891 Personal history of nicotine dependence | CPT/HCPCS: 87070; 87077; 87147; 87186; 87205; 99212 ==